=== PATIENT | male | born 1950 | race Caucasian/White ===

== ENCOUNTER 2016-11-06 22:35 | Emergency (ER) | payer MEDICARE, OTHER ==
--- NOTE | 2016-11-06 23:42 | RADIOLOGY REPORT ---
HISTORY: Ankle pain. COMPARISON: None. FINDINGS: Three views of the ankle obtained. There is no acute fracture. Post internal fixation of the healing distal fibular fracture with hardwa re intact and in anatomic alignment. There is no lytic or sclerotic lesion. The ankle mortise is int act. There is diffuse soft tissue swelling. No significant degenerative changes are noted. IMPRESSION: 1. Post internal fixation of the healing distal fibular fracture with hardware intact and in anatomi c alignment. 2. Diffuse soft tissue swelling. Final Electronic Signature: This report was electronically signed by Elsie Marte MD on 11/06/2016 11:39 PM. [email or web address] /
--- NOTE | 2016-11-06 23:43 | RADIOLOGY REPORT ---
HISTORY: Ankle pain. COMPARISON: None. FINDINGS: 2 views of the tibia and fibula obtained. There is no fracture. The distal fibular fixation hardware is better visualized on the dedicated ankle radiographs. There is no lytic or sclerotic lesion. The re is no soft tissue swelling. There is normal alignment and mineralization. IMPRESSION: Distal fibular hardware better visualized on the dedicated ankle radiographs, otherwise u nremarkable unremarkable. Final Electronic Signature: This report was electronically signed by Elsie Marte MD on 11/06/2016 11:41 PM. [email or web address] /
--- NOTE | 2016-11-07 00:35 | ER NURSING DOCUMENTATION ---
Nurse's Notes [facility] Name:Devendra Acuna Age:66 yrs Sex:Male :1950 Arrival Date:11/06/2016 Time:22:35 Bed4 Private MD:Physician, No Diagnosis:Ankle Sprain Presentation: 11/06 22:46 Acuity: ALLEN 3 mk2 22:57 Presenting complaint: Patient states: Fell this AM at 0900 injuring right ankle. Has sj been walking on it all day though very swollen. Care prior to arrival: None. Mechanism of Injury: Fall. Trauma event details: Injury occurred in the [facility] Injury occurred at home. Injury occurred November 06, 2016 Injury occurred at 09:00. 22:57 Method Of Arrival: Private Vehicle sj Historical: - Allergies: PENICILLINS; SULFA (SULFONAMIDES); SHELLFISH; emil brush; - Home Meds: 1. levothyroxine oral 2. Albuterol Inhl 3. Combivent Inhl 4. Aspirin Oral 5. atorvastatin oral 6. Dexilant oral 7. Lexapro Oral 8. advair HFA 9. Novolog Sub-Q 10. losartan oral 11. Melatonin Oral - PMHx: HYPOTHYROIDISM; Diabetes - IDDM; hypercholesterolemia; Asthma; Hypertension; DEPRESSION; GERD; - PSHx: Cholecysectomy; back; bilateral ankle plates; Tonsillectomy; - Tetanus: < 10 years. Screenin:01 Abuse screen: Denies threats or abuse. Denies injuries from another. Nutritional sj screening: On diabetic diet. Tuberculosis screening: No symptoms or risk factors identified. Assessment: 22:58 General: Appears in no apparent distress, Behavior is cooperative, pleasant. Pain: sj Denies pain. Neuro: Level of Consciousness is awake, alert, Oriented to person, place, time, event, paresthesias in bilateral lower extremities, baseline. Cardiovascular: Capillary refill < 3 seconds. Respiratory: Respiratory effort is even, unlabored, Respiratory pattern is regular. Injury Description: swelling to ankle. Vital Signs: 23:00 BP 180 / 69; Pulse 70; Resp 16; Temp 98.7(O); Pulse Ox 96% on R/A; Weight 115.21 kg; sj Height 6 ft. 1 in. (185.42 cm); Pain 0/10; 11/07 00:32 BP 171 / 62; Pulse 79; Pulse Ox 95% on R/A; Pain 3/10; 2 11/06 23:00 Body Mass Index 33.51 (115.21 kg, 185.42 cm) Trauma Score (Adult): 11/06 23:00 Eye Response: spontaneous(1); Verbal Response: oriented(1); Motor Response: obeys commands(2); Systolic BP: > 89 mm Hg(4); Respiratory Rate: 10 to 29 per min(4); [place] Score: 15; Trauma Score: 12 ED Course: 22:36 Patient arrived in ED. wy1 22:36 Physician, No is Private Physician. ma1 22:42 Zach Calderon MD is Attending Physician. tl1 22:44 Salud Inman RN is Primary Nurse. 2 22:46 Triage completed. 2 23:01 Valuables Given to family. Patient has correct armband on for positive identification. Call light in reach. Side rails up X 1. 23:02 Affected limb elevated. Ice pack applied. 23:15 Port Xray Completed. [email or web address] 11/07 00:09 Report received from LAYO Campos. Warm blanket given. scrub pants given. Pt has walker at [facility] home he prefers to use instead of crutches. 00:10 Walking boot applied. [facility] 00:22 Resting quietly. Foot is elevated. Ice packs given for take home use. 2 00:34 Valuables Remains with patient. 2 Administered Medications: No medications were administered Outcome: 00:20 Discharge ordered by . 1 00:32 Discharged to home via wheelchair. 2 00:32 Condition: stable 00:32 Discharge Assessment: Patient awake, alert and oriented x 3. No cognitive and/or functional deficits noted. Patient verbalized understanding of disposition instructions. Pt affected extremity is in a boot. Toe color is normal per pt. Immediate cap refill but toes are purple/bluish in color. Family states this is normal. 00:32 Discharge instructions given to patient, family, Instructed on discharge instructions, follow up and referral plans. medication usage. 00:34 Patient left the ED. [facility] Signatures: Eula Bales Meg, RN RN [facility] Zach Calderon MD MD 1 Dhruv, Beth sj [place], Malka ma1
--- NOTE | 2016-11-09 00:34 | ER PHYSICIAN DOCUMENTATION ---
Physician Documentation [facility] Name:Devendra Acuna Age:66 yrs Sex:Male :1950 Arrival Date:11/06/2016 Time:22:35 Bed4 Private MD:Physician, No ED Zach Romeo Disposition: 11/08 12:14 Chart complete. tl1 Disposition: 11/07/16 00:20 Discharged to Home/Self Care. Impression: Ankle Sprain. - Condition is Good. - Discharge Instructions: Ankle - SPRAIN ANKLE (w/ x-ray). - Medical Reconciliation form form. - Follow up: Private Physician; When: 4- 6 days; Reason: Recheck today's complaints, Continuance of care. - Problem is new. - Symptoms have improved. - Notes: SEE YOUR ORTHOPEDIST BACK HOME IN [place] WITHIN A WEEK. KEEP YOUR RIGHT ANKLE ELEVATED MUCH POSSIBLE. HPI: 11/06 22:38 This 66 yrs old Male presents to ER via Private Vehicle with complaints of tl1 Fall Injury. 22:38 Details of fall: The patient fell from an upright position. Onset: The tl1 symptom(s)/episode began/occurred this morning. Associated injuries: The patient sustained right ankle, swelling. 22:38 Associated signs and symptoms: The patient has no apparent associated signs or tl1 symptoms. He has a h/o DM and severe peripheral neuropathy and chronic venous insufficiency. He is visiting with his from [place]. He stumbled this AM and fell, injuring his right ankle. He has no pain perception in his lower legs and has been walking around on it for the last 12 hours or so. Just recently he noticed it was very swollen and thought he should have it checked out. Other than ankle swelling he has no new complaints.. Historical: - Allergies: PENICILLINS; SULFA (SULFONAMIDES); SHELLFISH; emil brush; - Home Meds: 1. levothyroxine oral 2. Albuterol Inhl 3. Combivent Inhl 4. Aspirin Oral 5. atorvastatin oral 6. Dexilant oral 7. Lexapro Oral 8. advair HFA 9. Novolog Sub-Q 10. losartan oral 11. Melatonin Oral - PMHx: HYPOTHYROIDISM; Diabetes - IDDM; hypercholesterolemia; Asthma; Hypertension; DEPRESSION; GERD; - PSHx: Cholecysectomy; back; bilateral ankle plates; Tonsillectomy; - Tetanus: < 10 years. ROS: 23:05 MS/extremity: Positive for swelling, Negative for pain, tenderness. tl1 23:05 All other systems are negative. Exam: 23:05 Constitutional: This is a well developed, well nourished patient who is awake, alert, tl1 and in no acute distress. 23:05 Head/face: Exam is negative for acute changes. 23:05 Neck: Exam negative for acute changes. 23:05 Cardiovascular: Rate: normal. 23:05 Respiratory: Respirations: normal. 23:05 Musculoskeletal/extremity: Extremities: noted in the right ankle: erythema, swelling, Joints: the right ankle displays limited range of motion, swelling, He cannot perceive pain or tendernes sanywher in his ankle. There is marked diffuse swelling. Cannot palpate pulses in the feet, but he does have about 3 sec capillary refill.. 23:05 Neuro: grossly normal. Vital Signs: 23:00 BP 180 / 69; Pulse 70; Resp 16; Temp 98.7(O); Pulse Ox 96% on R/A; Weight 115.21 kg; sj Height 6 ft. 1 in. (185.42 cm); Pain 0/10; 16 00:32 BP 171 / 62; Pulse 79; Pulse Ox 95% on R/A; Pain 3/10; mk2 11/06 23:00 Body Mass Index 33.51 (115.21 kg, 185.42 cm) Trauma Score (Adult): 11/06 23:00 Eye Response: spontaneous(1); Verbal Response: oriented(1); Motor Response: obeys commands(2); Systolic BP: > 89 mm Hg(4); Respiratory Rate: 10 to 29 per min(4); [place] Score: 15; Trauma Score: 12 Procedures: 23:05 Splinting: Splint applied to medial aspect of right calf, right ankle and medial aspect tl1 of right foot using Ortho 3D boot, applied by nurse. Patient tolerated well. MDM: 22:40 Patient medically screened. tl1 23:05 Differential diagnosis: contusion, fracture, sprain, strain. Data reviewed: vital tl1 signs, nurses notes, radiologic studies, plain films, and as a result, I will discharge patient. Test interpretation: by ED physician or midlevel provider: plain radiologic studies. Counseling: I had a detailed discussion with the patient and/or guardian regarding: the historical points, exam findings, and any diagnostic results supporting the discharge/admit diagnosis, radiology results, the need for outpatient follow up, to return to the emergency department if symptoms worsen or persist or if there are any questions or concerns that arise at home. Response to treatment: the patient's symptoms have mildly improved after treatment, and as a result, I will discharge patient. Special discussion: Definite need for orthopedic f/u. 11/06 23:43 Order name: ANKLE; [address] [id number] [facility] 11/06 23:44 Order name: TIBIA/FIBULA; [address] [id number] [facility] 11/06 23:18 Order name: Walking Boot; Complete Time: 00:09 tl1 Dispensed Medications: No medications were administered Signatures: Salud Inman RN RN mk2 Zach Calderon MD MD tl1 Beth Bartlett
== END 2016-11-07 00:35 | disposition home or self-care (01) ==
LOC: ER 22:35
DX: S96.911A Strain of unspecified muscle and tendon at ankle and foot level, right foot, initial encounter (principal); W01.0XXA Fall on same level from slipping, tripping and stumbling without subsequent striking against object, initial encounter; Y93.01 Activity, walking, marching and hiking; E11.43 Type 2 diabetes mellitus with diabetic autonomic (poly)neuropathy; I10 Essential (primary) hypertension; Z79.899 Other long term (current) drug therapy; Z79.82 Long term (current) use of aspirin; Z79.4 Long term (current) use of insulin
CPT/HCPCS: 99282; 99283